=== PATIENT | male | born 1970 | race Caucasian/White ===

== ENCOUNTER 2017-02-24 12:55 | Emergency (ER) | payer MEDICAID, OTHER ==
--- NOTE | 2017-02-24 13:29 | RAD ---
RIGHT ANKLE 3 VIEWS: HISTORY: Right ankle pain, injury. FINDINGS/IMPRESSION: Soft tissue swelling is present, predominantly in the lateral aspect of the right ankle. The ankle mortise is maintained. No acute fracture or dislocation is identified. There is a well corticated bony density inferomedial to the lateral malleolus which may represent an unfused ossicle or an old injury. A joint effusion is present. POS: [facility]
--- NOTE | 2017-02-24 13:55 | RAD ---
THREE VIEWS RIGHT FOOT: CLINICAL HISTORY: Pain, concern for fracture. FINDINGS: There is an obliquely oriented fracture of the 5th metatarsal without significant displacement. The re is lateral soft tissue swelling of the right foot. Lisfranc joint is maintained. There is mild osteoarthritis. IMPRESSION: Nondisplaced obliquely oriented fracture of the 5th metatarsal with overlying soft tissue swelling. POS: [facility]
[2017-02-24] MEDS ORDERED: HYDROcodone/Acetaminophen 10/325 mg Tablet ONE (14:38)
[2017-02-24] MEDS ORDERED: Naproxen 500 MG TAB ONE (14:39)
== END 2017-02-24 14:45 | disposition home or self-care (01) ==
LOC: MADERS 12:55
DX: S92.354A Nondisplaced fracture of fifth metatarsal bone, right foot, initial encounter for closed fracture (principal); F17.210 Nicotine dependence, cigarettes, uncomplicated; W19.XXXA Unspecified fall, initial encounter

== ENCOUNTER 2018-12-25 15:25 | Emergency (ER) | payer SELFPAY ==
--- NOTE | 2018-12-25 16:24 | RAD ---
3 VIEWS LEFT WRIST: Date: 12/25/18 COMPARISON: None. HISTORY: Left wrist pain after a piece of wood from a fence punctured the patient. FINDINGS: 3 views of the left wrist show no evidence of radiopaque foreign body. No degenerative changes are se en. There is no evidence of acute fracture or dislocation. IMPRESSION: No radiopaque foreign body identified. POS: [facility]
== END 2018-12-25 16:50 | disposition home or self-care (01) ==
LOC: MADERS 15:25
DX: S61.532A Puncture wound without foreign body of left wrist, initial encounter (principal); S63.502A Unspecified sprain of left wrist, initial encounter; E78.5 Hyperlipidemia, unspecified; F17.210 Nicotine dependence, cigarettes, uncomplicated; Z79.82 Long term (current) use of aspirin; W45.8XXA Other foreign body or object entering through skin, initial encounter
CPT/HCPCS: 99283

== ENCOUNTER 2021-05-02 18:57 | Emergency (ER) | payer SELFPAY ==
[~2021-05-02 18:57] MED LIST: Iopamidol 370 76% 100 ML VIAL ONE
[2021-05-02] MEDS ORDERED: Mag-Al Plus 1200 MG/1200 MG/120 MG/30 ML UDCUP ONE (20:37)
[2021-05-02] MEDS ORDERED: Lidocaine Viscous Sol 2% 15 ml UD Cup ONE (20:37)
[2021-05-02 21:00] LABS: #Basophils 0.1 thou/uL (0.0-0.2); #Eosinphils 0.1 thou/uL (0.0-0.7); #Lymphocytes 4.1 thou/uL (1.20-3.40); %Basophils 1.2 % (0.0-1.0); %Eosinophils 1.3 % (0.0-10.0); %Lymphocytes 36.5 % (21.0-51.0); %Monocytes 8.5 % (0.0-10.0); %Neutrophils 52.5 % (42.0-75.0); Hemoglobin 19.6 g/dL (14.0-18.0); Mean Corpuscular HGB CONC 33.9 g/dL (32.0-36.0); Mean Corpuscular Hemoglobin 31.6 pg (27.0-31.0); Mean Corpuscular Volume 93.3 fL (78.0-98.0); Mean Platelet Volume 6.4 fL (7.4-10.4); Platelet Count 236 thou/uL (130-400); RBC Distribution Width 11.2 % (11.5-14.5); Red Blood Cell (RBC) Count 6.21 mill/uL (4.70-6.10); White Blood Cell (WBC) Count 11.3 thou/uL (4.8-10.8)
[2021-05-02 21:01] LABS: Bilirubin Negative (Negative); Blood, Urine Negative (Negative); Clarity Clear (Clear); Glucose, Urine (Dipstick) Negative (Negative); Ketone, Urine Negative (Negative); Leukocyte Negative (Negative); Nitrite Negative (Negative); Protein, Urine (Dipstick) Negative (Neg-Trace); Urobilinogen 0.2 mg/dL (Less than 2); pH, Urine 5.5 (5.0-9.0)
[2021-05-02 21:02] LABS: Specific Gravity, Urine 1.004 (1.002-1.036)
[2021-05-02 21:11] LABS: Amphetamine Not Detected (NotDetected); Barbiturates Screen Not Detected (NotDetected); Benzodiazepine Screen Not Detected (NotDetected); Cocaine Metabolite Screen Not Detected (NotDetected); Medtox Control Line Valid? VALID (VALID); Methadone Not Detected (NotDetected); Methamphetamine Not Detected (NotDetected); Opiate Screen Not Detected (NotDetected); Oxycodone Screen Not Detected (NotDetected); Phencyclidine (PCP) Not Detected (NotDetected); THC/Cannabinoid Screen Not Detected (NotDetected); Tricyclic Screen Not Detected (NotDetected)
[2021-05-02 21:18] LABS: ALT (SGPT) 76 U/L (8-55); AST (SGOT) 49 U/L (5-34); Acetaminophen Less than 6.0 mcg/mL (10.0-30.0); Albumin 4.6 g/dL (3.5-5.0); Alcohol 153 mg/dL (Less than 10); Alkaline Phosphatase 72 U/L (40-110); Anion Gap 19 mmol/L (10-20); BUN (Urea Nitrogen) 5 mg/dL (8.4-25.7); Bilirubin, Total 0.6 mg/dL (0.2-1.2); Calc. Creatinine Clearance 0 mL/min (70-130); Calcium 9.2 mg/dL (7.8-10.44); Carbon Dioxide 23 mmol/L (22-29); Chloride 98 mmol/L (98-107); Glucose 82 mg/dL (70-105); Protein, Total 7.6 g/dL (6.0-8.3); Salicylate Less than 8.0 mg/dL (15.0-30.0)
[2021-05-02 21:20] LABS: Lipase 17 U/L (8-78); Magnesium 2.1 mg/dL (1.6-2.6)
[2021-05-02 21:27] LABS: Sodium 136 mmol/L (136-145)
== END 2021-05-02 22:40 | disposition home or self-care (01) ==
LOC: MADERS 18:57
DX: K29.80 Duodenitis without bleeding (principal); F10.10 Alcohol abuse, uncomplicated; R16.0 Hepatomegaly, not elsewhere classified; E78.5 Hyperlipidemia, unspecified; F17.210 Nicotine dependence, cigarettes, uncomplicated; Z79.82 Long term (current) use of aspirin; Z79.899 Other long term (current) drug therapy
CPT/HCPCS: 36415; 74177; 80053; 80306; 80307; 81003; 83690; 83735; 85025; 93005; Q9967

== ENCOUNTER 2023-05-17 16:06 | Emergency (ER) | payer OTHER, SELFPAY ==
[2023-05-17] MEDS ORDERED: Bacitracin 1 PK ONE (16:20)
[2023-05-17] MEDS ORDERED: Lidocaine 1% w/Epinephrine 1:100K 20 ML VIAL ONE (16:20)
== END 2023-05-17 17:20 | disposition home or self-care (01) ==
LOC: MADERS 16:06
DX: S51.811A Laceration without foreign body of right forearm, initial encounter (principal); I10 Essential (primary) hypertension; E78.00 Pure hypercholesterolemia, unspecified; F17.210 Nicotine dependence, cigarettes, uncomplicated; Z79.82 Long term (current) use of aspirin; W31.2XXA Contact with powered woodworking and forming machines, initial encounter
CPT/HCPCS: 12002